=== PATIENT | male | born 2005 | race African-American/Black ===

== ENCOUNTER 2024-06-27 11:15 | Outpatient (RCR) | payer OTHER, SELFPAY | END 2024-10-25 23:59 | disposition home or self-care (01) | PROVIDERS: Visit Provider Student in an Organized Health Care Education/Training Program | DX: M76.52 Patellar tendinitis, left knee (principal); M25.562 Pain in left knee; Z51.89 Encounter for other specified aftercare | CPT/HCPCS: 97110; 97140; 97161 ==